=== PATIENT | male | born 1990 | race Caucasian/White ===

== ENCOUNTER 2025-06-14 08:49 | Emergency (ER) | payer BC, SELFPAY ==
[~2025-06-14] VITALS: Ht 170.2 cm; Wt 58.3 kg
[2025-06-14 09:34] LABS: BASO # 0.0 10^3/uL (0.0-0.2); BASO % 0.3 % (0.0-1.0); EOS # 0.2 10^3/uL (0.0-0.5); EOS % 1.7 % (0.0-3.0); LYMPH # 2.9 10^3/uL (1.5-5.0); LYMPH % 29.8 % (24.0-44.0); MONO # 0.9 10^3/uL (0.0-0.8); MONO % 9.2 % (2.0-8.0); NEUTROPHILS # 5.8 10^3/uL (1.5-8.5); NEUTROPHILS % 58.7 % (36.0-66.0); PLATELET COUNT, AUTOMATED 305 10^3/uL (150-450)
[2025-06-14 09:40] LABS: ETHYL ALCOHOL (ETHANOL) < 0.003 % (0.000-0.010)
[2025-06-14 09:42] LABS: ALT/SGPT 17 U/L (7.0-40); AST/SGOT 40 U/L (<34); CALCIUM LEVEL 9.1 MG/DL (8.5-10.1); CARBON DIOXIDE LEVEL 25 MMOL/L (20-31); CHLORIDE LEVEL 107 MMOL/L (98-107); CREATININE FOR GFR 0.52 MG/DL (0.70-1.30); GLOMERULAR FILTRATION RATE > 90.0 (>60); POTASSIUM SERUM 4.6 MMOL/L (3.5-5.1); SALICYLATE LEVEL < 3.0 MG/DL (<30); SODIUM LEVEL 142 MMOL/L (136-145)
[2025-06-14 09:45] LABS: CPK CREATINE PHOSPHOKINASE 285 U/L (46-171)
[2025-06-14 10:16] LABS: AMPHETAMINES LEVEL URINE NEGATIVE (NEGATIVE); BENZODIAZEPINES URINE NEGATIVE (NEGATIVE)
[2025-06-14 10:17] LABS: BARBITURATES URINE NEGATIVE (NEGATIVE); CANNABINOIDS URINE NEGATIVE (NEGATIVE); COCAINE METABOLITE URINE NEGATIVE (NEGATIVE); METHADONE URINE NEGATIVE (NEGATIVE); OPIATES URINE NEGATIVE (NEGATIVE); PHENCYCLIDINE URINE NEGATIVE (NEGATIVE)
[2025-06-14 10:45] VITALS: BP 116/56; TEMP 98; O2SAT 98
== END 2025-06-14 11:05 | disposition home or self-care (01) ==
LOC: EDBD 08:49 → M ED 08:49
DX: J96.00 Acute respiratory failure, unspecified whether with hypoxia or hypercapnia (principal); T48.905A Adverse effect of unspecified agents primarily acting on the respiratory system, initial encounter; F17.200 Nicotine dependence, unspecified, uncomplicated; F19.10 Other psychoactive substance abuse, uncomplicated; Z91.030 Bee allergy status; Z91.02 Food additives allergy status